=== PATIENT | female | born 1980 | race African-American/Black ===

== ENCOUNTER 2025-02-20 15:06 | Emergency (ER) | payer OTHER ==
[~2025-02-20] VITALS: Ht 167.6 cm; Wt 70.0 kg
[2025-02-20 15:08] VITALS: O2SAT 99
[2025-02-20] MEDS ORDERED: IBUP-2028 MT (18:17)
[2025-02-20] MEDS ORDERED: HYDR-4001 MT (18:17)
[2025-02-20] MEDS: IBUPROFEN 600MG TABLET PO ONE (18:19)
[2025-02-20] MEDS ORDERED: BO1 TP (18:19)
[2025-02-20] MEDS: ONDANSETRON 4MG ODT PO ONE (18:19)
[2025-02-20] MEDS: MORPHINE SULFATE 4 MG/ML INJ (FOR IV/IM USE) IM ONE (18:19)
[2025-02-20 19:06] VITALS: BP 145/84; PULSE 88; RESP 18; TEMP 36.9; O2SAT 98
== END 2025-02-20 19:27 | disposition home or self-care (01) ==
LOC: ER 15:06
DX: S82.141A Displaced bicondylar fracture of right tibia, initial encounter for closed fracture (principal); Z79.899 Other long term (current) drug therapy; X58.XXXA Exposure to other specified factors, initial encounter; Y93.89 Activity, other specified; Y92.89 Other specified places as the place of occurrence of the external cause; Y99.8 Other external cause status
CPT/HCPCS: 99283; 81025; 73560; 96372; L1830; Q0162; J2270